=== PATIENT | male | born 1980 | race Caucasian/White ===

== ENCOUNTER 2020-08-26 15:30 | Emergency (ER) | payer MEDICAID ==
[~2020-08-26] VITALS: Ht 177.8 cm; Wt 78.1 kg
[2020-08-26 15:46] VITALS: BP 117/63
[2020-08-26] MEDS ORDERED: CARB15DR65 RIGHT EAR (16:05)
== END 2020-08-26 17:59 | disposition home or self-care (01) ==
LOC: ER 15:31
DX: H61.23 Impacted cerumen, bilateral (principal); F12.90 Cannabis use, unspecified, uncomplicated; Z79.899 Other long term (current) drug therapy
CPT/HCPCS: 99282